=== PATIENT | male | born 1995 | race Caucasian/White ===

== ENCOUNTER 2018-02-10 00:32 | Emergency (ER) | payer OTHER ==
[~2018-02-10] VITALS: Ht 177.8 cm; Wt 70.0 kg
[2018-02-10 00:38] VITALS: TEMP 37.5; Ht 177.8 cm; Wt 70.0 kg
[2018-02-10] MEDS ORDERED: LIDOCAINE/EPINEPH/TETRACAINE 1 EA SYR EXT STA (01:14)
[2018-02-10] MEDS ORDERED: CEPH500C PO (02:54)
[2018-02-10] MEDS ORDERED: CEPHALEXIN 500MG HOME PACK 1 EA BTL PO ONE (03:00)
[2018-02-10 03:08] VITALS: BP 120/79; PULSE 83; O2SAT 99
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
== END 2018-02-10 03:08 | disposition home or self-care (01) ==
LOC: C.EDB 00:34 → C.EDA 03:08
DX: S01.81XA Laceration without foreign body of other part of head, initial encounter (principal); W22.042A Striking against wall of swimming pool causing other injury, initial encounter